=== PATIENT | female | born 1970 | race Caucasian/White ===

== ENCOUNTER 2018-05-14 01:45 | Emergency (ER) | payer OTHER, SELFPAY ==
[2018-05-14] VITALS (7 sets, daily range): BP systolic 109–141; BP diastolic 58–94; PULSE 83–102; RESP 17–24; TEMP 37.1–39.5; O2SAT 94–97
--- NOTE | 2018-05-14 02:01 | EKG12_ITS ---
Test Reason : COMPLAINT Blood Pressure : / mmHG Vent. Rate : 088 BPM Atrial Rate : 088 BPM P-R Int : 136 ms QRS Dur : 092 ms QT Int : 388 ms P-R-T Axes : 077 069 076 degrees QTc Int : 469 ms Normal sinus rhythm Normal ECG Confirmed by NICOLE MARTINEZ, ROSA ([id number]), assistant production editor MANUEL GUILLEN ([id number] on 05/16/2018 1:44:27 PM Referred By: ROMIE Confirmed By:ROSA RIVERA MD
[2018-05-14 02:04] LABS: Mucous, Urine 0 SEEN /hpf (<or=2+)
[2018-05-14 02:06] LABS: Color, Urine Yellow (Yellow); Glucose, Dipstick Normal (Normal); Ketone-Dipstick Negative (Negative); Leukocyte Esterase-Dipstick 500 /ul (Negative); Nitrite-Dipstick Positive (Negative); Occult Blood-Urine 250 /ul (Negative); Protein-Dipstick 30 mg/dl (Negative); Urine Bilirubin Dipstick Negative (Negative); Urine Clarity Cloudy (Clear); Urine Urobilinogen Normal (Normal)
--- NOTE | 2018-05-14 02:08 | ED.VISSUMM ---
- ER Visit Summary Date of Service: 05/14/18 Chief Complaint: Fever with urinary urgency and frequency and back pain History of Present Illness: The patient is a 47 F past medical history of kidney stones and asthma. Prior appendectomy and tubal ligation. Patient states several days of urinary urgency and frequency. Beginning on Monday. Monday morning started having a fever as high as 103. Nausea without vomiting. No diarrhea. No cough or chest pain or shortness of breath. States this does not feel like 1 of her prior kidney stones. Physical Examination: Middle-aged female. Temperature 103.1. She looks like she feels ill. She does not specifically look septic or toxic. She is mildly dehydrated. HEENT exam dry mucous membranes. Neck nontender no lymphadenopathy. No meningismus. Lungs clear to auscultation bilaterally. Heart tachycardic rate about 100 105. No murmur. Abdomen soft and nontender. Normal bowel sounds no peritoneal signs. Extremities moves all 4. Neurologically intact. Calves nontender without edema or cords. Skin no rashes. Back bilateral CVA tenderness. No ecchymosis or bruising. No redness or warmth. Neurologic exam normal. Awake alert. No focal motor deficits. Test Results: CBC shows a white count 8.5. Hemoglobin is 11 which is her baseline. Chemistries are unremarkable with a normal gap and creatinine. Liver enzymes normal. UA positive nitrates 25-50 white cells 10-25 red cells. 1+ bacteria. Consistent with UTI. Urine culture was sent. Lactate was normal at 0.9. EKG shows sinus rhythm rate 88 with no acute abnormality. Blood cultures were sent and are pending. Emergency Department Course and Treatment: Clinically patient has pyelonephritis. Will be hydrated with IV fluids. Afebrile be treated both oral Tylenol and IV Toradol. She will be started on Rocephin IV. Septic workup will be pursued including urinalysis, urine culture and blood cultures. Treatment Plan: Repeat exam at 04 50 8 AM patient is doing much better feels and looks better. She was given IV antibiotics here in the ER. She feels comfortable being discharged home. She and I discussed that she was diagnosed with pyelonephritis. She will be placed on Keflex 4 times a day for 10 days. Follow-up with her primary care physician. Return if worse. Plenty of fluids and rest. Work excuse for the next 2 days. Disposition: Discharge Impression: Acute fever Acute pyelonephritis Acute dehydration This note was generated with [employer] dictation software. It may contain incorrect words, spelling, and punctuation that were not noted in review of the chart prior to signing ED Disposition - Plan for ED Patient: Referrals: Cat Rouse MD [Primary Care Provider] -
[2018-05-14 02:11] LABS: Bacteria 1+ /hpf (None Seen); Red Blood Cells-Urine 10-25 SEEN /hpf (0-5); Squamous Epithelial Cells - UA 0-5 SEEN /hpf (5-10); White Blood Cells 25-50 SEEN /hpf (0-5)
[2018-05-14] MEDS: Acetaminophen 500 MG Tablet 1000 MG PO (02:12)
[2018-05-14] MEDS: Ondansetron 4 MG/2 ML Vial IV (02:13)
[2018-05-14] MEDS: Ketorolac 30 MG/ML Syringe IV (02:13)
[2018-05-14] MEDS: 0.9% Normal Saline 1,000 ML 999 ML IV ×2 (02:13→03:30)
[2018-05-14 02:19] LABS: Absolute Lymphocyte Count 1.31 X10^3/ul (0.83-4.51); Absolute Neutrophil Count 6.1 X10^3/uL (2.0-7.7); Basophil# 0.04 X10^3/uL; Basophil% 0.5 % (0-1); Eosinophil# 0.22 X10^3/uL; Eosinophils% 2.6 % (0-5); Hematocrit 35.7 % (37-47); Hemoglobin 11.7 g/dl (12.0-15.0); Lymphocyte # 1.31 X10^3/ul (4.0); Lymphocyte % 15.4 % (19-41); Mean Corp Hgb Conc 32.8 g/gl (32-36); Mean Corpuscular Hgb 29.5 pg (27.0-32.0); Mean Corpuscular Volume 89.9 fL (81-99); Mean Platelet Vol. 9.6 fl (6.2-12.0); Monocyte# 0.84 X10^3/uL; Monocyte% 9.9 % (0-10); Neutrophil # 6.05 X10^3/uL (2.7-7.7); Neutrophil % 71.4 % (47-70); Platelet Count 191 K/mm3 (150-450); RBC Distribution Width CV 13.8 % (11.6-14.6); RBC Distribution Width SD 45.5 fl (35.1-43.9); Red Blood Count 3.97 M/mm3 (4.2-5.4); White Blood Count 8.5 K/mm3 (4.4-11.0)
[2018-05-14 02:20] LABS: POSITIVE COUNT NO; POSITIVE DIFFERENTIAL NO; POSITIVE MORPHOLOGY NO
[2018-05-14 02:35] LABS: ALB/GLOB Ratio 0.9 RATIO (0.9-2.4); AST(SGOT) 15 U/L (15-37); Alanine Aminotransfer ALT/SGPT 14 U/L (13-56); Albumin, Serum 3.5 g/dL (3.2-5.0); Alkaline Phosphatase 99 U/L (45-117); Anion Gap 7 (5-15); BUN 13 mg/dL (7-18); BUN/Creat Ratio 17.4 RATIO (10-20); Calcium,Total 8.3 mg/dL (8.5-10.1); Chloride 110 mmol/L (98-107); Creatinine, Serum 0.75 mg/dL (0.55-1.02); EST Glomerular Filtration Rate 88 mL/min (>60); Est Glom Filt Rate - Afr Amer 106 mL/min (>60); Estimated Creatinine Clearance 84.14 ml/min; Globulin 3.8 g/dL (2.2-4.2); Glucose 148 mg/dL (74-106); Potassium 3.7 mmol/L (3.5-5.1); Protein, Total 7.3 g/dL (6.4-8.2); Sodium Level 139 mmol/L (136-145)
[2018-05-14 02:37] LABS: Lactic Acid 0.9 mmol/L (0.4-2.0)
[2018-05-14] MEDS: Ceftriaxone 1 GM/50 ML BAG IV (02:53)
--- NOTE | 2018-05-14 05:03 | ED.DEP ---
ED Disposition - Plan for ED Patient: Disposition: Home or Assisted Living Instructions: ED Kidney Infec Female Prescriptions: Cephalexin [Keflex] 500 mg PO Q6 #40 cap Referrals: Cat Rouse MD [Primary Care Provider] - 1 Week Additional Instructions: Plenty of fluids and rest. Alternate Tylenol and Motrin for the fever. He was diagnosed with a urinary tract infection that is up into your kidneys called pyelonephritis. You will be placed on the antibiotic Keflex 1 pill 4 times a day for 10 days. This should cover most urinary tract infections. Urine cultures were sent and pending if they come back and are a different bacteria than we are treating we will let you know. Follow-up with your primary care physician or return if worse.
[2018-05-14] MEDS: Ondansetron ODT 4 MG Tablet PO (05:21)
== END 2018-05-14 05:21 | disposition home or self-care (01) ==
PROVIDERS: Emergency Provider Emergency Medicine; Family Provider Internal Medicine; PCP Internal Medicine
DX: N10 Acute pyelonephritis (principal); E86.0 Dehydration; R50.9 Fever, unspecified; R00.0 Tachycardia, unspecified; J45.909 Unspecified asthma, uncomplicated; Z72.0 Tobacco use; Z79.899 Other long term (current) drug therapy; Z87.442 Personal history of urinary calculi
CPT/HCPCS: 80053; 81001; 83605; 85025; 87040; 87086; 87088; 87186; 93005; 96365; 96375; 99285; J7030; A4216; J2405

== ENCOUNTER 2020-06-11 12:20 | Emergency (ER) | payer MEDICAID, SELFPAY ==
[2020-06-11 12:21] VITALS: BP 149/92; PULSE 96; RESP 17; TEMP 35.8; O2SAT 95; BMI 20.8
[2020-06-11 12:24] VITALS: BP 149/92; PULSE 96; RESP 17; TEMP 35.8; O2SAT 95
--- NOTE | 2020-06-11 12:45 | RAD_ITS ---
STUDY: X-RAY CHEST REASON FOR EXAM: Female, 49 years old. Cough TECHNIQUE: Single AP portable view of the chest. COMPARISON: Comparison is made with prior study 01/22/2017. FINDINGS: EKG electrodes are seen. Hyperinflation. Stable blunting of the left costophrenic angle. No acute amount is seen. Normal size heart. Normal mediastinum and gisella. Normal visualized pulmonary arteries. Normal visualized aortic arch and descending thoracic aorta. Normal visualized thoracic spine. Normal visualized ribs, clavicles, and shoulders. There is no demonstrated abnormality of the visualized soft tissue structures of the upper abdomen. RAD/Chest 1 View (Portable) IMPRESSION: Hyperinflation. Stable examination. Electronically Signed: Leland Woodall MD at 13:28 EST , Service support ,
[2020-06-11 13:05] LABS: Absolute Lymphocyte Count 1.28 X10^3/uL (0.83-4.51); Absolute Neutrophil Count 11.9 X10^3/uL (2.0-7.7); Basophil# 0.09 X10^3/uL; Basophil% 0.6 % (0-1); Eosinophil# 0.06 X10^3/uL; Eosinophils% 0.4 % (0-5); Hemoglobin 11.4 g/dL (12.0-15.0); Lymphocyte # 1.28 X10^3/ul (4.0); Lymphocyte % 8.9 % (19-41); Mean Corp Hgb Conc 33.5 g/dL (32-36); Mean Corpuscular Volume 89.5 fL (81-99); Mean Platelet Vol. 9.9 fl (6.2-12.0); Monocyte# 1.03 X10^3/uL; Monocyte% 7.2 % (0-10); NRBC Flagged by Analyzer 0 % (0-5); Neutrophil # 11.88 X10^3/uL (2.7-7.7); Neutrophil % 82.5 % (47-70); Platelet Count 185 K/mm3 (150-450); RBC Distribution Width CV 12.9 % (11.6-14.6); RBC Distribution Width SD 42.4 fl (35.1-43.9); White Blood Count 14.4 K/mm3 (4.4-11.0)
[2020-06-11 13:21] LABS: AST(SGOT) 12 U/L (15-37); Alanine Aminotransfer ALT/SGPT 12 U/L (13-56); Albumin, Serum 3.5 g/dL (3.2-5.0); Alkaline Phosphatase 113 U/L (45-117); Anion Gap 6 (5-15); BUN 20 mg/dL (7-18); BUN/Creat Ratio 15.4 RATIO (10-20); Calcium,Total 8.7 mg/dL (8.5-10.1); Chloride 109 mmol/L (98-107); EST Glomerular Filtration Rate 46 mL/min (>60); Est Glom Filt Rate - Afr Amer 56 mL/min (>60); Estimated Creatinine Clearance 49.37 ml/min; Globulin 3.4 g/dL (2.2-4.2); Glucose 155 mg/dL (74-106); Potassium 3.5 mmol/L (3.5-5.1); Protein, Total 6.9 g/dL (6.4-8.2); Sodium Level 138 mmol/L (136-145)
[2020-06-11 13:25] LABS: Lactic Acid 0.8 mmol/L (0.4-1.9)
--- NOTE | 2020-06-11 13:28 | ED.VISSUMM ---
- ER Visit Summary Date of Service: 06/11/20 Chief Complaint: Fever, myalgias History of Present Illness: The patient is a 49 F who presents with fever and myalgias that began today when she woke up. Patient states she feels achy all over. Patient states it has been constant throughout the day. Patient states she took Tylenol prior to arrival which helped somewhat. Patient also admits to some low back pain. Patient also admits to a headache. Patient states her temperature at home was 102.6. Patient admits to a sore throat. Patient denies any chest pain. Patient denies any shortness of breath or cough. Patient denies any nausea, vomiting, or diarrhea. Physical Examination: Vital signs are stable. Patient is afebrile. Patient is in no acute distress. Oral mucosa is pink and moist. Neck is supple. Trachea is midline. There is no JVD noted. Heart was regular rate and rhythm. Lungs are clear and equal bilaterally. Abdomen is soft. Bowel sounds are normal. There is no tenderness. There is no rebound or guarding noted. Skin is warm dry. Cranial nerves II through XII are intact. There are no focal motor or sensory deficits noted. Extremities are intact. There is no calf tenderness or edema. Test Results: CBC shows a mild leukocytosis of 14.4. Hemoglobin was 11.4 and hematocrit was 34.0. Comprehensive metabolic profile was obtained. There is a mild elevation of her creatinine at 1.30. COVID-19 rapid antigen was obtained and was negative. Lactate was normal. Urinalysis showed leukocyte esterase of 500 and occult blood of 250. There were 25-50 white blood cells and 25-50 red blood cells. Urine culture was sent. Portable 1 view chest x-ray was obtained. On my interpretation, lung painter are clear. There is normal cardiac silhouette. Bony thorax is normal. There is no acute process noted. Radiologist also interpreted the x-ray and agrees. Emergency Department Course and Treatment: Patient was given IV fluids here. Patient was given a dose of IV Rocephin. Patient was given a prescription for Keflex. Patient was instructed to drink plenty of fluids. Patient was instructed to take Tylenol or ibuprofen as needed for any aches or fevers. Patient was instructed to follow-up with her primary care physician in 5 to 7 days. Patient understood and was agreeable with the plan. All questions were answered. Disposition: Discharge home Impression: 1. Urinary tract infection 2. Dehydration This note was generated with [employer] dictation software. It may contain incorrect words, spelling, and punctuation that were not noted in review of the chart prior to signing ED Disposition - Plan for ED Patient: Disposition: Home or Assisted Living Diagnosis: Urinary tract infection, Dehydration Instructions: ED Bladder Infection, Female (Adult) Prescriptions: Cephalexin [Keflex] 500 mg PO Q6 #12 cap Transmission Status: Pending to [facility]30 Referrals: Cat Rouse MD [Primary Care Provider] - 3-5 Days
[2020-06-11 14:12] VITALS: BP 133/82; PULSE 80; RESP 13; TEMP 36.9; O2SAT 97
[2020-06-11] MEDS: 0.9% Normal Saline 1,000 ML 999 ML IV ×2 (14:25→15:26)
[2020-06-11 14:30] LABS: Mucous, Urine 0 SEEN /hpf (<or=2+)
[2020-06-11 14:36] LABS: Color, Urine Yellow (Yellow); Glucose, Dipstick Normal (Normal); Ketone-Dipstick Negative (Negative); Leukocyte Esterase-Dipstick 500 /ul (Negative); Nitrite-Dipstick Negative (Negative); Occult Blood-Urine 250 /ul (Negative); Protein-Dipstick 30 mg/dl (Negative); Specific Gravity, Urine 1.015 (1.002-1.030); Urine Bilirubin Dipstick Negative (Negative); Urine Clarity Sl. Cloudy (Clear); Urine Urobilinogen Normal (Normal)
[2020-06-11 14:44] LABS: Bacteria 1+ /hpf (None Seen); Red Blood Cells-Urine 25-50 SEEN /hpf (0-5); Squamous Epithelial Cells - UA 0-5 SEEN /hpf (5-10); White Blood Cells 25-50 SEEN /hpf (0-5)
[2020-06-11 15:00] VITALS: BP 148/84; PULSE 80; RESP 17; TEMP 36.9; O2SAT 99
[2020-06-11] MEDS: Acetaminophen 500 MG Tablet 1000 MG PO (15:26)
[2020-06-11] MEDS: Ceftriaxone 1 GM/50 ML BAG IV (15:26)
[2020-06-11 16:37] VITALS: BP 142/85; PULSE 76; RESP 20; TEMP 36.9; O2SAT 98
== END 2020-06-11 16:54 | disposition home or self-care (01) ==
PROVIDERS: Emergency Provider Emergency Medicine; PCP Internal Medicine
DX: N39.0 Urinary tract infection, site not specified (principal); E86.0 Dehydration; Z20.822 Contact with and (suspected) exposure to COVID-19; J45.909 Unspecified asthma, uncomplicated; Z72.0 Tobacco use; Z79.899 Other long term (current) drug therapy
CPT/HCPCS: 71045; 80053; 81001; 83605; 85025; 87086; 87088; 87426; 96361; 96365; 99285; J7030; J7050

== ENCOUNTER 2020-06-23 01:52 | Emergency (ER) | payer MEDICAID, SELFPAY ==
[2020-06-23 01:53] VITALS: BP 150/86; PULSE 71; RESP 16; TEMP 36; O2SAT 98; BMI 21.5
--- NOTE | 2020-06-23 02:30 | ED.VIS.GEN ---
History of Present Illness Chief Complaint: Edema Informant: Patient Narrative: 49-year-old female took a lisinopril/HCTZ pill earlier this evening. This is a new prescription for hypertension that was prescribed by her PCP. She states that she woke with the left side of her tongue swelling. She denies any dyspnea or difficulty swallowing. She has never had anything like this before. Past Medical History - Allergies and Home Meds Allergies/Adverse Reactions: Allergies aluminum hydroxide [From Maalox Advanced] Adverse Reaction (Verified 06/23/20 01:55) Hives calcium carbonate [From Maalox Advanced] Adverse Reaction (Verified 06/23/20 01:55) Hives erythromycin base Adverse Reaction (Verified 06/23/20 01:55) Diarrhea magnesium hydroxide [From Maalox Advanced] Adverse Reaction (Verified 06/23/20 01:55) Hives simethicone [From Maalox Advanced] Adverse Reaction (Verified 06/23/20 01:55) Hives Primary Care Physician: Cat Rouse MD [Primary Care Provider] - Past Medical History: - - Hypertension Surgical History: noncontributory Smoking Status: Current every day smoker Drugs: None Review of Systems General: Denies: Chills, Fever, Sweats Eyes: Denies: Visual changes - bilaterally, Diplopia ENT: Reports: - - Tongue swelling. Denies: Rhinorrhea, Sore throat Cardiovascular: Denies: Chest pain, Palpitations Respiratory: Denies: Dyspnea, Cough, Dyspnea on exertion Gastrointestinal: Denies: Abdominal pain, Nausea, Vomiting, Diarrhea, Melena, Hematochezia Genitourinary: Denies: Dysuria, Hematuria, Frequency Musculoskeletal: Denies: Back pain, Extremity Pain Skin: Denies: Rash, Wounds Neurological: Denies: Headache, Weakness, Numbness Physical Exam Vital Signs/Narrative: Vital Signs Temp Pulse Resp BP Pulse Ox 06/23/20 01:53 96.8 F L 71 16 150/86 H 98 Inital Vital Signs reviewed: Yes General: Well nourished, Well developed, No Acute Distress Head: Normocephalic, Atraumatic Eyes: Perrl, EOMI ENT: Moist mucous membranes, No rhinorrhea, - - The left side of the tongue is swollen. The floor the mouth is not. There is no lip swelling. She is handling her secretions normally. No muffled voice. Neck: Supple, Nontender Cardiovascular: Regular rate, Regular rhythm, No murmurs Respiratory: No distress, CTA bilaterally, Chest nontender Abdomen: Soft, Nontender, Nondistended, Normal bowel sounds Back: Nontender, Normal Inspection Extremities: Nontender, No edema Skin: Normal color, No rash Neurological: Alert, Oriented x3, Cranial nerves II-XII grossly intact, Normal Strength, Normal Sensation Psychological: Normal affect, Normal Mood Diagnostic/Tx/Re-eval - Medical Decision Making Patient received Benadryl Pepcid and Solu-Medrol IV. She was allowed to rest. I checked on her multiple times and the patient is improving. After about 3 hours her tongue was minimally swollen only on the left side. Its normal grooves were now visible. At this point I believe it is reasonable to let her go home. Should she have any recurrence of her symptoms she needs to return. Prednisone Benadryl Pepcid at home as well. Discontinue of her lisinopril HCTZ medication. ED Disposition - Plan for ED Patient: Disposition: Home or Assisted Living Diagnosis: Angioedema Instructions: ED Angioedema Prescriptions: predniSONE tablet 60 mg PO DAILY #12 tab Prescription Printed Referrals: Cat Rouse MD [Primary Care Provider] - Additional Instructions: Please discontinue your lisinopril/HCTZ medication. Please take Benadryl every 8 hours for the next 3 days Pepcid 20 mg twice daily for 3 days Prednisone prescription.
[2020-06-23] MEDS: MethylPREDNISolone 125 MG/2 ML Vial IV (02:33)
[2020-06-23] MEDS: DiphenhydrAMINE 50 MG/ML Syringe 25 MG IV (02:33)
[2020-06-23] MEDS: Famotidine 200 MG/20 ML MDV 20 MG in 0.9% Normal Saline (Pres. free 8 ML 300 MG IV (02:33)
[2020-06-23 03:23] VITALS: BP 92/73; PULSE 61; RESP 14; O2SAT 98
[2020-06-23 04:37] VITALS: BP 116/66; PULSE 63; RESP 15; O2SAT 97
[2020-06-23 05:06] VITALS: BP 132/75; PULSE 60; RESP 16; O2SAT 97
== END 2020-06-23 05:06 | disposition home or self-care (01) ==
PROVIDERS: Emergency Provider Emergency Medicine; PCP Internal Medicine
DX: T78.3XXA Angioneurotic edema, initial encounter (principal); I10 Essential (primary) hypertension; F17.200 Nicotine dependence, unspecified, uncomplicated; Z79.52 Long term (current) use of systemic steroids; Z79.899 Other long term (current) drug therapy
CPT/HCPCS: 96374; 96375; 99284; J7030; A4216; J3490

== ENCOUNTER 2020-07-23 11:19 | Outpatient (RCR) | payer MEDICAID, SELFPAY | END 2020-09-15 23:59 | LOC: IMMUN 11:19 | PROVIDERS: PCP Internal Medicine; Referring Provider Family Medicine; Visit Provider Family Medicine | DX: Z23 Encounter for immunization (principal) | CPT/HCPCS: 0001A; 0002A; 91300 ==

== ENCOUNTER 2021-02-16 13:54 | Emergency (ER) | payer MEDICAID, SELFPAY ==
[2021-02-16 13:55] VITALS: BP 112/68; PULSE 63; RESP 16; TEMP 37.4; O2SAT 99; BMI 22.1
[2021-02-16 15:02] LABS: Mucous, Urine 0 SEEN /hpf (<or=2+); Squamous Epithelial Cells - UA 0 SEEN /hpf (5-10)
[2021-02-16 15:03] LABS: Color, Urine Yellow (Yellow); Glucose, Dipstick Normal (Normal); Ketone-Dipstick Negative (Negative); Leukocyte Esterase-Dipstick 500 /ul (Negative); Nitrite-Dipstick Positive (Negative); Occult Blood-Urine 250 /ul (Negative); Protein-Dipstick 30 mg/dl (Negative); Specific Gravity, Urine 1.015 (1.002-1.030); Urine Bilirubin Dipstick Negative (Negative); Urine Clarity Cloudy (Clear); Urine Urobilinogen Normal (Normal); Urine pH 6.5 (5.0 - 8.0)
[2021-02-16 15:09] LABS: Bacteria 1+ /hpf (None Seen); Red Blood Cells-Urine > 100 SEEN /hpf (0-5); White Blood Cells >100 SEEN /hpf (0-5)
--- NOTE | 2021-02-16 16:41 | CT_ITS ---
STUDY: CT ABDOMEN AND PELVIS WITHOUT CONTRAST REASON FOR EXAM: Female, 50 years old. Flank pain RADIATION DOSAGE (If Supplied By Facility): CTDIvol = ( 6.19 ) mGy, DLP = ( 292.05 ) mGycm TECHNIQUE: Transaxial images were obtained from the dome of the diaphragm to the symphysis pubis without oral contrast, and without intravenous contrast. Sagittal and coronal images were reconstructed. Individualized dose optimization techniques were used for this CT. COMPARISON: 2016 FINDINGS: The visualized lung bases are unremarkable. The visualized portions of the heart are within normal limits. Normal liver. Normal gallbladder and extrahepatic biliary system. Normal spleen. Normal pancreas. Normal bilateral adrenal glands. Left kidney is free of obstructive uropathy. There are stable hyperdense cysts and stable nonobstructing stones, largest in the lower pole measures 7.4 mm. The right kidney shows hydronephrosis and hydroureter with perinephric and periureteral inflammatory stranding. Findings are due to a 5 mm stone in the proximal right ureter seen on axial image 67. The ureter distal to this stone is of normal caliber. There are nonobstructing stones noted within the right kidney along with a stable fat-containing angiomyolipoma. Normal visualized stomach. Nondistended fluid-filled small bowel loops are noted consistent with ileus. Normal colon. There is non-visualization of the appendix. There is diffuse atherosclerotic calcification of the abdominal aorta, without a demonstrated aneurysm. Normal inferior vena cava. Normal retroperitoneum. Normal urinary bladder. Uterus is present, the endometrium cannot be accurately evaluated with CT. Normal abdominal wall. There are diffuse degenerative changes of the visualized lumbar spine, and pelvis. CT/Abdomen/Pelvis without Cont IMPRESSION: There is a 5 mm stone in the proximal right ureter causing right-sided hydronephrosis and hydroureter with perinephric and periureteral inflammatory stranding. Bilateral nonobstructing nephrolithiasis Stable hyperdense cysts in the left kidney, no specific follow-up needed. 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
[2021-02-16] MEDS: Ondansetron 4 MG/2 ML Vial IV (16:45)
[2021-02-16] MEDS: Morphine 4 MG/ML Syringe IV ×2 (16:45→18:15)
[2021-02-16 17:29] LABS: Absolute Lymphocyte Count 1.64 X10^3/uL (0.83-4.51); Absolute Neutrophil Count 13.4 X10^3/uL (2.0-7.7); Basophil# 0.07 X10^3/uL; Basophil% 0.4 % (0-1); Eosinophils% 2.9 % (0-5); Hemoglobin 12.1 g/dL (12.0-15.0); Lymphocyte # 1.64 X10^3/ul (0.83-4.51); Lymphocyte % 9.5 % (19-41); Mean Corp Hgb Conc 32.7 g/dL (32-36); Mean Corpuscular Hgb 29.3 pg (27.0-32.0); Mean Corpuscular Volume 89.6 fL (81-99); Mean Platelet Vol. 9.7 fl (6.2-12.0); Monocyte# 1.49 X10^3/uL; Monocyte% 8.7 % (0-10); NRBC Flagged by Analyzer 0 % (0-5); Neutrophil # 13.37 X10^3/uL (2.7-7.7); Neutrophil % 77.9 % (47-70); Platelet Count 248 K/mm3 (150-450); RBC Distribution Width CV 13.7 % (11.6-14.6); RBC Distribution Width SD 45.5 fl (35.1-43.9); Red Blood Count 4.13 M/mm3 (4.2-5.4); White Blood Count 17.2 K/mm3 (4.4-11.0)
[2021-02-16 17:38] LABS: Anion Gap 3 (5-15); BUN 21 mg/dL (7-18); BUN/Creat Ratio 19.8 RATIO (10-20); Calcium,Total 9.1 mg/dL (8.5-10.1); Chloride 106 mmol/L (98-107); Creatinine, Serum 1.06 mg/dL (0.55-1.02); EST Glomerular Filtration Rate 58 mL/min (>60); Est Glom Filt Rate - Afr Amer 70 mL/min (>60); Estimated Creatinine Clearance 61.06 ml/min; Glucose 134 mg/dL (74-106); Potassium 4.4 mmol/L (3.5-5.1); Sodium Level 136 mmol/L (136-145)
[2021-02-16] MEDS: Ceftriaxone 1 GM/50 ML BAG IV (17:41)
[2021-02-16] MEDS: oxyCODONE 5 MG Tablet PO (18:16)
[2021-02-16 18:32] VITALS: BP 129/71; PULSE 72; RESP 16; O2SAT 97
--- NOTE | 2021-02-16 20:40 | ED.VIS.FEGU ---
HPI HPI - Female History of Present Illness Chief Complaint: Flank Pain Narrative Narrative: 50-year-old female presenting with right flank pain. She said it started earlier today. Patient has history of kidney stones and does see Dr. Douglas as her urologist. Patient states he has had to have stents put in for her kidney stones. She states her typically rather large. Patient has not had any fever or chills. She admits to dysuria and urinary frequency. Patient does also have associated nausea and vomiting. PFSH PFSH Home Medications amitriptyline 3 tab PO QHS 01/12/17 [History Last Taken Unknown] citalopram 1 tab PO DAILY 01/12/17 [History Last Taken Unknown] meloxicam 1 tab PO DAILY 01/12/17 [History Last Taken Unknown] albuterol sulfate [Proair Hfa] 2 puff INHALATION Q4H PRN PRN 05/14/18 [History Last Taken Unknown] hydroxyzine HCl 1 tab PO Q6H PRN PRN 05/14/18 [History Last Taken Unknown] lisinopril-hydrochlorothiazide 1 ea PO DAILY 06/23/20 [History Last Taken Unknown] prednisone 60 mg PO DAILY #12 tab 06/23/20 [Rx Last Taken Unknown] ondansetron HCl [Zofran] 4 mg PO Q8H #20 tab 02/16/21 [Rx Last Taken Unknown] oxycodone-acetaminophen [Percocet] 1 tab PO Q6H PRN 3 Days #12 tab 02/16/21 [Rx Last Taken Unknown] sulfamethoxazole-trimethoprim [Bactrim DS] 1 tab PO BID #28 tab 02/16/21 [Rx Last Taken Unknown] Allergy/AdvReac Type Severity Reaction Status Date / Time lisinopril Allergy Angioedema Verified 02/16/21 13:57 aluminum hydroxide AdvReac Hives Verified 02/16/21 13:56 [From Maalox Advanced] calcium carbonate AdvReac Hives Verified 02/16/21 13:56 [From Maalox Advanced] erythromycin base AdvReac Diarrhea Verified 02/16/21 13:56 magnesium hydroxide AdvReac Hives Verified 02/16/21 13:56 [From Maalox Advanced] simethicone AdvReac Hives Verified 02/16/21 13:56 [From Maalox Advanced] Social History Smoking Status: Current every day smoker tobacco type: cigarettes ROS ROS ED Constitutional Constitutional ED: Denies chills or fever(s) Eyes Eyes: Denies blurry vision or change in vision ENT ENT ED: Denies rhinorrhea or sore throat Cardiovascular Cardiovascular: Denies chest pain or palpitations Respiratory/Chest Respiratory/Chest: Denies cough, dyspnea or stridor Gastrointestinal Gastrointestinal: Reports abdominal pain, nausea and vomiting Musculoskeletal Musculoskeletal: Reports other Details: Right flank pain Integumentary Denies Abrasions or rash Neurologic Neurologic: Denies headache(s) or paresthesias EXAM Physical Exam Const Vital Signs: 02/16/21 13:55 02/16/21 18:32 Temperature 99.3 F H Temperature Source Temporal Pulse Rate 63 72 Respiratory Rate 16 16 Blood Pressure 112/68 129/71 H Blood Pressure Mean 82 Pulse Ox 99 97 Oxygen Delivery Method Room Air Positive well nourished General Appearance ED: NAD; Negative for pallor HEENT Reports moist mucous membranes Negative for trauma Eyes PERRL and EOMs intact bilaterally Resp normal respiratory effort and clear to auscultation bilaterally Cardio regular rate and regular rhythm GI GI Narrative: Mild tenderness to palpation right lower quadrant. Narrative: Right-sided CVA tenderness. Back/Spine General Back: CVA tenderness right Neuro oriented x3 Sensorium / Orientation: alert Psych mental status grossly normal Skin General Skin Exam: Negative for jaundice or pallor MDM MDM MDM Narrative Medical decision making narrative: Patient presenting with right flank pain and history of kidney stones. Her urinalysis was positive for infection with positive nitrites as well as white blood cells count WBCs greater than 100. Leukocyte esterase is 500. Patient given a dose of Rocephin. I did obtain blood work and her renal function and electrolytes are normal. Her CBC shows a leukocytosis of 17.2. Otherwise her vital signs are all completely normal and she is not tachycardic, tachypneic, hypotensive, febrile. CT of the abdomen pelvis without contrast shows a 5 mm proximal ureteral stone consistent with the patient's pain pattern. Patient was given 2 doses of morphine in the ED and she feels improved. I did discuss possibility of admission given her UTI and kidney stone however she felt more comfortable following up with her outpatient urologist Dr. Douglas. She will be started on Bactrim, oxycodone, Zofran for home. She is given return precautions. Impression: 1. 5 mm right ureteral stone 2. Pyelonephritis Lab Data Attestation: I reviewed the patient's lab results. Labs: Laboratory Results - last 24 hr 02/16/21 02/16/21 02/16/21 14:56 16:25 16:25 WBC 17.2 H RBC 4.13 L Hgb 12.1 Hct 37.0 MCV 89.6 MCH 29.3 MCHC 32.7 RDW Std Deviation 45.5 H RDW Coeff of Atiya 13.7 Plt Count 248 MPV 9.7 Immature Gran % (Auto) 0.600 Neut % (Auto) 77.9 H Lymph % (Auto) 9.5 L [place] % (Auto) 8.7 Eos % (Auto) 2.9 Baso % (Auto) 0.4 Absolute Neuts (auto) 13.4 H Absolute Lymphs (auto) 1.64 Nucleated RBC % 0 Sodium 136 Potassium 4.4 Chloride 106 Carbon Dioxide 27.0 Anion Gap 3 L BUN 21 H Creatinine 1.06 H Estim Creat Clear Calc 61.06 Est GFR (MDRD) Af Amer 70 Est GFR (MDRD) Non-Af 58 L BUN/Creatinine Ratio 19.8 Glucose 134 H Calcium 9.1 Urine Color Yellow Urine Clarity Cloudy Urine pH 6.5 Ur Specific [place] 1.015 Urine Protein 30 H Urine Glucose (UA) Normal Urine Ketones Negative Urine Occult Blood 250 H Urine Nitrite Positive H Urine Bilirubin Negative Urine Urobilinogen Normal Ur Leukocyte Esterase 500 H Urine RBC > 100 SEEN Urine WBC >100 SEEN Ur Squamous Epith Cells 0 SEEN Urine Bacteria 1+ Urine Mucus 0 SEEN Radiography Diagnostic Testing: Clinical Impression(s) from Imaging Studies Abdomen/Pelvis CT 02/16/21 16:41 IMPRESSION: There is a 5 mm stone in the proximal right ureter causing right-sided hydronephrosis and hydroureter with perinephric and periureteral inflammatory stranding. Bilateral nonobstructing nephrolithiasis Stable hyperdense cysts in the left kidney, no specific follow-up needed. 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, no specific follow-up needed Small bowel ileus No free intraperitoneal fluid, air, or suspicious adenopathy Electronically Signed: Mike Pressley MD at 17:22 EST , Service support , Discharge Plan Triage Chief Complaint: Flank Pain ED Provider: Jorge Min Dx/Rx/DC Orders Instructions: ED Pyelonephritis, Female (Adult), ED Kidney Stone w/ Colic Prescriptions: New sulfamethoxazole-trimethoprim [Bactrim DS] 800-160 mg tablet 1 tab PO BID Qty: 28 RF: 0 oxycodone-acetaminophen [Percocet] 5-325 mg tablet 1 tab PO Q6H PRN (Reason: pain) 3 Days Qty: 12 RF: 0 ondansetron HCl [Zofran] 4 mg tablet 4 mg PO Q8H Qty: 20 RF: 0 No Action citalopram 40 MG tablet 1 tab PO DAILY RF: 0 meloxicam 15 MG tablet 1 tab PO DAILY RF: 0 amitriptyline 10 MG tablet 3 tab PO QHS RF: 0 hydroxyzine HCl 25 MG tablet 1 tab PO Q6H PRN PRN (Reason: Sleep) RF: 0 albuterol sulfate [ProAir HFA] 1 PUFF inhaler 2 puff inhalation Q4H PRN PRN (Reason: Wheezing) RF: 0 lisinopril-hydrochlorothiazide 1 EACH tablet 1 ea PO DAILY RF: 0 prednisone 20 MG tablet 60 mg PO DAILY Qty: 12 RF: 0 Primary Care Provider: Cat Rouse Referrals: Cat Rouse MD [Primary Care Provider] - Disposition Disposition: Home, Self Care Discharge Date/Time: 02/16/21 18:39
== END 2021-02-16 18:39 | disposition home or self-care (01) ==
PROVIDERS: Emergency Provider Student in an Organized Health Care Education/Training Program; PCP Internal Medicine
DX: N13.6 Pyonephrosis (principal); F17.210 Nicotine dependence, cigarettes, uncomplicated; Z79.1 Long term (current) use of non-steroidal anti-inflammatories (NSAID); Z79.52 Long term (current) use of systemic steroids; Z79.899 Other long term (current) drug therapy; Z87.442 Personal history of urinary calculi
CPT/HCPCS: 74176; 80048; 81001; 85025; 87077; 87086; 87088; 87186; 96365; 99285; J7050; A4216; J2405

== ENCOUNTER 2022-01-09 12:52 | Emergency (ER) | payer OTHER, MEDICAID, SELFPAY ==
[2022-01-09 12:54] VITALS: BP 130/78; PULSE 65; RESP 18; TEMP 36.2; O2SAT 99; BMI 22.4
--- NOTE | 2022-01-09 13:04 | RAD_ITS ---
STUDY: X-RAY - UNILATERAL RIBS ( LEFT ) WITH CHEST REASON FOR EXAM: Female, 51 years old. Shortness of breathCOUGHING WITH LEFT RIB PAIN X 3 WEEKS TECHNIQUE - RIBS: 4 view(s) of the ribs. TECHNIQUE - CHEST: Single PA view of the chest. COMPARISON: AUGUST 11, 2020 FINDINGS - RIBS: Normal visualized ribs without a demonstrated fracture. FINDINGS - CHEST: The lungs are clear. No visualized consolidation or pneumothorax. There is hyperinflation of the lungs consistent with chronic obstructive lung disease (COPD). There is no demonstrated pleural abnormality. Normal size heart. Normal mediastinum and gisella. Normal visualized pulmonary arteries. Normal visualized aortic arch and descending thoracic aorta. Normal visualized thoracic spine. Normal visualized ribs, clavicles, and shoulders. There is no demonstrated abnormality of the visualized soft tissue structures of the upper abdomen. RAD/Ribs Uni Min 3V w/PA Chest IMPRESSION: RIBS: Normal x-ray examination of the ribs. CHEST: No acute process. COPD Electronically Signed: Bhupendra Ferro MD at 14:09 EDT ,
--- NOTE | 2022-01-09 13:06 | EX.ED.DYSGE1 ---
HPI <MONIQUE Forrest - Last Filed: 01/09/22 14:12> History of Present Illness Chief Complaint: Other, Pain/Inj Narrative Narrative: 51-year-old female with history of asthma who still smokes 1/2 pack/day, anxiety, depression, hypertension presents to the [facility] with 2 weeks of generalized left rib pain. Patient has had a viral illness that she has been suffering from for the last 3 weeks, patient states she is coughing uncontrollably and has worsening pain to her left lateral ribs. Patient states that she still has a cough and the rib pain is getting worse and she is here for evaluation. She denies any recent trips, she denies any history of PE, DVT, no recent surgeries. Patient denies any fevers or chills. Patient has had pneumothorax in the past and she is concerned PFS <MONIQUE Forrest - Last Filed: 01/09/22 14:12> [facility] Home Medications amitriptyline 10 mg tablet 3 tab PO QHS 01/12/17 [History Last Taken Unknown] citalopram 40 mg tablet 1 tab PO DAILY 01/12/17 [History Last Taken Unknown] meloxicam 15 mg tablet 1 tab PO DAILY 01/12/17 [History Last Taken Unknown] albuterol sulfate 90 mcg/actuation aerosol inhaler (ProAir HFA) 2 puff inhalation Q4H PRN PRN Wheezing 05/14/18 [History Last Taken Unknown] hydroxyzine HCl 25 mg tablet 1 tab PO Q6H PRN PRN Sleep 05/14/18 [History Last Taken Unknown] lisinopril 20 mg-hydrochlorothiazide 12.5 mg tablet 1 ea PO DAILY 06/23/20 [History Last Taken Unknown] prednisone 20 mg tablet 60 mg PO DAILY #12 tabs 06/23/20 [Rx Last Taken Unknown] ondansetron HCl 4 mg tablet (Zofran) 4 mg PO Q8H #20 tabs 02/16/21 [Rx Last Taken Unknown] oxycodone-acetaminophen 5 mg-325 mg tablet (Percocet) 1 tab PO Q6H PRN pain 3 days #12 tabs 02/16/21 [Rx Last Taken Unknown] sulfamethoxazole 800 mg-trimethoprim 160 mg tablet (Bactrim DS) 1 tab PO BID #28 tabs 02/16/21 [Rx Last Taken Unknown] albuterol sulfate 90 mcg/actuation aerosol inhaler (Ventolin HFA) 1 - 2 puff inhalation Q4H PRN Wheezing #8.5 grams 01/09/22 [Rx Last Taken Unknown] prednisone 10 mg tablet See Taper PO DAILY #30 tabs 01/09/22 [Rx Last Taken Unknown] tramadol 50 mg tablet 50 mg PO Q8H PRN pain #10 tabs 01/09/22 [Rx Last Taken Unknown] Allergy/AdvReac Type Severity Reaction Status Date / Time lisinopril Allergy Angioedema Verified 01/09/22 12:54 aluminum hydroxide AdvReac Hives Verified 01/09/22 12:54 [From Maalox Advanced] calcium carbonate AdvReac Hives Verified 01/09/22 12:54 [From Maalox Advanced] erythromycin base AdvReac Diarrhea Verified 01/09/22 12:54 magnesium hydroxide AdvReac Hives Verified 01/09/22 12:54 [From Maalox Advanced] simethicone AdvReac Hives Verified 01/09/22 12:54 [From Maalox Advanced] Social History Smoking Status: Current every day smoker tobacco type: cigarettes ROS <Luis Lilly NP-C - Last Filed: 01/09/22 14:12> [facility] ED ROS Narrative Constitutional: Negative for fever, chills, weight loss, weakness Eyes: Negative for vision loss, vision change, double vision ENT: Negative for any sore throat, ear pain, congestion Cardiovascular: Negative for any chest pain, tightness, palpitations. Positive for left rib pain Respiratory: Negative for any , sputum production, hemoptysis, dyspnea on exertion, orthopnea. Positive for cough, positive for intermittent dyspnea Gastrointestinal: Negative for any abdominal pain, nausea, vomiting, diarrhea, constipation, blood in stool, blood in vomit : Negative for any urinary frequency, dysuria, retention, blood in urine Muscle skeletal: Negative for any muscle joint pain, stiffness, myalgias, arthralgias, neck pain, back pain Neurological: Negative for any headache, syncope, numbness or tingling, dizziness Skin: Negative for any rashes, lumps, itching, abrasions, lacerations Psychiatric: Negative for any depression, anxiety, stress, suicidal ideation, homicidal ideation Hematologic: Negative for any easy bruising, excessive bruising, easy bleeding Allergies: Negative for any eczema, hives, rash EXAM <MONIQUE Forrest - Last Filed: 01/09/22 14:12> Physical Exam Narrative Exam Narrative: Vital signs reviewed. HEET: Head normocephalic atraumatic, TMs clear bilaterally. Posterior pharynx is clear, moist mucous membranes. Nares clear bilaterally. Neck: Supple with no lymphadenopathy or tenderness. No signs of meningismus, negative jolt sign. Cardiac: Regular rate and rhythm no murmurs gallops or rubs, equal peripheral pulses bilaterally. Respiratory: Lung sounds heard bilaterally however patient does have expiratory wheeze bilaterally to lower lung field. Positive left-sided chest tenderness, negative for any ecchymosis, negative for any edema, negative for any crepitus noted Abdomen: Soft, nontender, nondistended. No abdominal bruit or pulsatile masses. No hepatosplenomegaly Extremities: No peripheral edema, no signs of gross trauma or deformity. Active full range of motion of all extremities. Neuro: Cranial nerves II through XII intact, no focal neurological deficits. Skin: Clean dry and intact with no rash, purpura, petechiae, vesicles or pustules. Backs/flank: No CVA tenderness, no midline spinal tenderness, no deformity. Psych: Normal mood and affect. No SI, HI or acute psychosis. Const Vital Signs: 01/09/22 12:54 01/09/22 13:05 01/09/22 13:15 Temperature 97.1 F L Temperature Source Temporal Pulse Rate 65 64 Respiratory Rate 18 20 H Respiratory Effort Respiratory Pattern Normal Blood Pressure 130/78 H Blood Pressure Mean 95 Pulse Ox 99 Oxygen Delivery Method Room Air 01/09/22 13:15 01/09/22 13:16 Temperature Temperature Source Pulse Rate Respiratory Rate 20 H Respiratory Effort Short of Breath Respiratory Pattern Blood Pressure Blood Pressure Mean Pulse Ox 100 100 Oxygen Delivery Method Room Air Room Air Positive well nourished and well developed General Appearance ED: well developed <Dr. Hussein Carey MD - Last Filed: 01/09/22 13:53> Physical Exam Const Vital Signs: 01/09/22 12:54 01/09/22 13:05 01/09/22 13:15 Temperature 97.1 F L Temperature Source Temporal Pulse Rate 65 64 Respiratory Rate 18 20 H Respiratory Effort Respiratory Pattern Normal Blood Pressure 130/78 H Blood Pressure Mean 95 Pulse Ox 99 Oxygen Delivery Method Room Air 01/09/22 13:15 01/09/22 13:16 Temperature Temperature Source Pulse Rate Respiratory Rate 20 H Respiratory Effort Short of Breath Respiratory Pattern Blood Pressure Blood Pressure Mean Pulse Ox 100 100 Oxygen Delivery Method Room Air Room Air [facility] <MONIQUE Forrest - Last Filed: 01/09/22 14:12> [facility] Radiography Diagnostic Testing: Clinical Impression(s) from Imaging Studies Ribs w/Chest X-Ray 01/09/22 13:04 IMPRESSION: RIBS: Normal x-ray examination of the ribs. CHEST: No acute process. COPD Electronically Signed: Bhupendra Ferro MD at 14:09 EDT , Treatment and Re-Evaluation Narrative: Patient appears well, patient appears nontoxic, vital signs are stable. Patient presents to the emergency department with 2 weeks of left-sided chest pain secondary to coughing, 3 weeks of generalized viral-like illness. Patient does not appear toxic. Patient's vital signs are stable, she is not hypoxic. Patient's physical examination is consistent with an asthma exacerbation. She did receive x-rays inserted by ER physician these were unremarkable for any pneumothorax, infiltrate. Patient did receive breathing treatments, this did greatly improve her respiratory status. Patient will be discharged with a steroid taper, albuterol inhaler, as well as a few days of tramadol for her left rib pain. At this time, I do not believe that antibiotics are indicated. Patient is instructed to return for any worsening symptoms. Patient stable for discharge. <Dr. Hussein Carey MD - Last Filed: 01/09/22 13:53> [facility] Narrative Medical decision making narrative: Seen and evaluated independently and in conjunction with FIELD OPERATOR. Agree with notes above unless documented otherwise. Patient has been having increased asthma symptoms as well as a URI for the past 3 weeks. She states she was having fevers early on in the course of the illness but not since. MDI has been helping a little, but now her wheezing and dyspnea has been out of control to the point where the MDI is not helping very much. She does have expiratory wheezes on exam, and pain with tenderness at 1 particular point in her left chest wall/rib cage in the anterior axillary line, approximately rib #9 or 8. There is no crepitus or subcutaneous emphysema. I believe this is probably an intercostal strain due to all the coughing which significantly makes the pain worse. We obtained a two-view chest x-ray which on my interpretation is negative for any pneumonia or fracture or pneumothorax. I do not think she needs further work-up, she was given aerosols that helped a lot, we will place her on steroids I do not think she needs antibiotics and she already has a rescue inhaler, she is comfortable with that plan. Radiography Diagnostic Testing: Clinical Impression(s) from Imaging Studies Ribs w/Chest X-Ray 01/09/22 13:04 IMPRESSION: RIBS: Normal x-ray examination of the ribs. CHEST: No acute process. COPD Electronically Signed: Bhupendra Ferro MD at 14:09 EDT Reading Location ID and State: [address] [place] [address] , Service support , Discharge Plan Triage Chief Complaint: Other, Pain/Inj ED Midlevel Provider: Luis Lilly ED Provider: Hussein Carey Dx/Rx/DC Orders Clinical Impression: Asthma exacerbation, Bronchitis, Acute bronchospasm, Chest wall muscle strain Instructions: ED Bronchospasm (Adult), ED Chest Wall Strain, Asthma Prescriptions: New albuterol sulfate [Ventolin HFA] 90 mcg/actuation HFA aerosol inhaler 1 - 2 puff inhalation Q4H PRN Qty: 8.5 1RF prednisone 10 mg tablet See Taper PO DAILY Qty: 30 0RF Taper: Prednisone Taper 40 mg DAILY@0800 for 3 Days and 0 Hour 30 mg DAILY@0800 for 3 Days and 0 Hour 20 mg DAILY@0800 for 3 Days and 0 Hour 10 mg DAILY@0800 for 3 Days and 0 Hour tramadol 50 mg tablet 50 mg PO Q8H PRN (Reason: pain) Qty: 10 0RF No Action citalopram 40 MG tablet 1 tab PO DAILY Label Comments: TAKE 1 TABLET BY MOUTH DAILY meloxicam 15 MG tablet 1 tab PO DAILY Label Comments: Take 1 tablet by mouth once daily. amitriptyline 10 MG tablet 3 tab PO QHS Label Comments: Take 3 tablets by mouth daily at bedtime. hydroxyzine HCl 25 MG tablet 1 tab PO Q6H PRN PRN (Reason: Sleep) Label Comments: TAKE 1 TABLET BY MOUTH EVERY 6 HOURS NEEDED albuterol sulfate [ProAir HFA] 1 PUFF inhaler 2 puff inhalation Q4H PRN PRN (Reason: Wheezing) Label Comments: INHALE 2 PUFFS INTO THE LUNGS EVERY 4 HOURS NEEDED lisinopril-hydrochlorothiazide 1 EACH tablet 1 ea PO DAILY prednisone 20 MG tablet 60 mg PO DAILY Qty: 12 0RF sulfamethoxazole-trimethoprim [Bactrim DS] 800-160 mg tablet 1 tab PO BID Qty: 28 0RF oxycodone-acetaminophen [Percocet] 5-325 mg tablet 1 tab PO Q6H PRN (Reason: pain) 3 Days Qty: 12 0RF ondansetron HCl [Zofran] 4 mg tablet 4 mg PO Q8H Qty: 20 0RF Primary Care Provider: Cat Rouse Referrals: Cat Rouse MD [Primary Care Provider] - Activity Restrictions/Additional Instructions: Take medications as prescribed Disposition Disposition: Home, Self Care
[2022-01-09] MEDS: predniSONE 20 MG Tablet 60 MG PO (13:08)
[2022-01-09] MEDS: Albuterol 2.5 MG/3 ML VIAL.NEB. INHALATION (13:13)
[2022-01-09] MEDS: Ipratropium/Albuterol Sulfate 3 ML AMPUL.NEB INHALATION (13:13)
[2022-01-09 13:15] VITALS: PULSE 64; RESP 20; O2SAT 100
[2022-01-09 13:16] VITALS: RESP 20; O2SAT 100
== END 2022-01-09 14:24 | disposition home or self-care (01) ==
PROVIDERS: Emergency Provider Emergency Medicine; PCP Internal Medicine; Visit Provider Emergency Medicine
DX: J45.901 Unspecified asthma with (acute) exacerbation (principal); F17.210 Nicotine dependence, cigarettes, uncomplicated; S29.011A Strain of muscle and tendon of front wall of thorax, initial encounter; X58.XXXA Exposure to other specified factors, initial encounter
CPT/HCPCS: 71101; 94640; 99251; 99283; G0463

== ENCOUNTER 2022-11-03 14:36 | Emergency (ER) | payer OTHER, MEDICAID, SELFPAY ==
[2022-11-03 14:37] VITALS: BP 154/95; PULSE 96; RESP 18; TEMP 36.6; O2SAT 99
[2022-11-03 17:41] LABS: Mucous, Urine 0 SEEN /hpf (<or=2+); Squamous Epithelial Cells - UA 0 SEEN /hpf (5-10)
[2022-11-03 17:48] LABS: Internal QC Validated? YES +Cl - CLEAR BKGD; Pregnancy, Serum, hCG Quali. NEGATIVE Negative
[2022-11-03 17:51] LABS: Color, Urine Yellow (Yellow); Glucose, Dipstick Normal (Normal); Ketone-Dipstick Negative (Negative); Leukocyte Esterase-Dipstick 500 /ul (Negative); Nitrite-Dipstick Positive (Negative); Occult Blood-Urine 250 /ul (Negative); Protein-Dipstick 100 mg/dl (Negative); Urine Bilirubin Dipstick Negative (Negative); Urine Clarity Sl. Cloudy (Clear); Urine Urobilinogen Normal (Normal)
--- NOTE | 2022-11-03 17:51 | CT_ITS ---
STUDY: CT ABDOMEN AND PELVIS WITHOUT CONTRAST REASON FOR EXAM: Female, 52 years old. Right flank pain RADIATION DOSAGE (If Supplied By Facility): CTDIvol = ( 6.05 ) mGy, DLP = ( 279.54 ) mGycm TECHNIQUE: Transaxial images were obtained from the dome of the diaphragm to the symphysis pubis without oral contrast, and without intravenous contrast. Sagittal and coronal images were reconstructed. Individualized dose optimization techniques were used for this CT. COMPARISON: February 16, 2021 FINDINGS: The visualized lung bases are unremarkable. The visualized portions of the heart are within normal limits. Normal liver. Normal gallbladder and extrahepatic biliary system. Normal spleen. Normal pancreas. Normal bilateral adrenal glands. Multiple tiny nonobstructing calculi in the left kidney. There is a small cyst as well as 2 small hemorrhagic cyst. . There are tiny nonobstructing stones in the right kidney as well as a lipomatous density possibly representing angiomyolipoma Normal visualized stomach. Normal small intestine. Diffuse fecal retention noted within the colon. No evidence for acute appendicitis Minor atherosclerotic changes of the aorta without evidence for aneurysm. Normal inferior vena cava. Normal retroperitoneum. Incompletely distended mildly thick walled bladder likely of no significance. Small right ovarian cyst measuring approximately 2.05 x 1.75 cm Normal abdominal wall. Normal osseous structures. CT/Abdomen/Pelvis without Cont IMPRESSION: Bilateral nephrolithiasis without evidence for hydronephrosis or ureteral calculus Small simple and hemorrhagic cysts in left kidney. 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 Incidental finding of small right ovarian cyst. Electronically Signed: Marvin Fox MD at 19:00 EDT ,
[2022-11-03 17:58] LABS: Bacteria 1+ /hpf (None Seen); Calcium Oxalate Crystals Ur RARE /hpf (<or=2+); Red Blood Cells-Urine 5-10 SEEN /hpf (0-5); White Blood Cells 50-100 SEEN /hpf (0-5)
[2022-11-03] MEDS: 0.9% Normal Saline 1,000 ML 1000 ML IV (18:06)
[2022-11-03] MEDS: Morphine 4 MG/ML Syringe IV (18:06)
[2022-11-03] MEDS: Ondansetron 4 MG/2 ML Vial IV (18:06)
[2022-11-03 18:14] LABS: Absolute Lymphocyte Count 2.46 X10^3/uL (0.83-4.51); Absolute Neutrophil Count 6.9 X10^3/uL (2.0-7.7); Basophil# 0.09 X10^3/uL; Basophil% 0.9 % (0-1); Eosinophil# 0.34 X10^3/uL; Eosinophils% 3.2 % (0-5); Hematocrit 41.6 % (37-47); Hemoglobin 13.3 g/dL (12.0-15.0); Lymphocyte # 2.46 X10^3/ul (0.83-4.51); Lymphocyte % 23.3 % (19-41); Mean Corpuscular Hgb 28.4 pg (27.0-32.0); Mean Corpuscular Volume 88.9 fL (81-99); Monocyte# 0.75 X10^3/uL; Monocyte% 7.1 % (0-10); NRBC Flagged by Analyzer 0 % (0-5); Neutrophil # 6.91 X10^3/uL (2.7-7.7); Neutrophil % 65.3 % (47-70); Platelet Count 270 K/mm3 (150-450); RBC Distribution Width CV 13.4 % (11.6-14.6); RBC Distribution Width SD 43.7 fl (35.1-43.9); Red Blood Count 4.68 M/mm3 (4.2-5.4); White Blood Count 10.6 K/mm3 (4.4-11.0)
[2022-11-03 18:33] LABS: Anion Gap 8 (5-15); BUN 20 mg/dL (7-18); BUN/Creat Ratio 20.8 RATIO (10-20); Calcium,Total 9.6 mg/dL (8.5-10.1); Chloride 106 mmol/L (98-107); Creatinine, Serum 0.96 mg/dL (0.55-1.02); EST Glomerular Filtration Rate 64 mL/min (>60); Est Glom Filt Rate - Afr Amer 78 mL/min (>60); Estimated Creatinine Clearance 62.12 ml/min; Glucose 105 mg/dL (74-106); Potassium 3.6 mmol/L (3.5-5.1); Sodium Level 140 mmol/L (136-145)
--- NOTE | 2022-11-03 19:43 | EDS_ITS ---
HPI History of Present Illness Chief Complaint: Flank Pain Informant: patient Onset/Context/Timing Onset: Days Context: Gradual Onset Timing: Continuous Quality: Pressure Location: Back Worsened by: Nothing Relieved by: Sleep Narrative Narrative: Patient presents with right flank pain and generalized fatigue that has been getting worse over the past few days. Patient states it is gradually getting worse. Patient states she feels pressure in her back. Patient admits to some urinary frequency but denies any dysuria or hematuria. Patient states she has a history of kidney stones. Patient states this feels somewhat similar to kidney stone pain that she has had in the past. Patient admits to nausea but denies any vomiting. Patient admits to some subjective chills but denies any fevers. Patient states her pain gets better when she is able to sleep. Patient also admits to headache and some dizziness. [facility] Medical History (Updated 11/03/22 @ 19:[address] Pavan Petty, DO) Asthma Kidney stones Home Medications amitriptyline 10 mg tablet 3 tab PO QHS 01/12/17 [History Last Taken Unknown] citalopram 40 mg tablet 1 tab PO DAILY 01/12/17 [History Last Taken Unknown] meloxicam 15 mg tablet 1 tab PO DAILY 01/12/17 [History Last Taken Unknown] albuterol sulfate 90 mcg/actuation aerosol inhaler (ProAir HFA) 2 puff inhala tion Q4H PRN PRN Wheezing 05/14/18 [History Last Taken Unknown] hydroxyzine HCl 25 mg tablet 1 tab PO Q6H PRN PRN Sleep 05/14/18 [History Last Taken Unknown] lisinopril 20 mg-hydrochlorothiazide 12.5 mg tablet 1 ea PO DAILY 06/23/20 [History Last Taken Unknown] prednisone 20 mg tablet 60 mg (3 x 20 mg) PO DAILY #12 tabs 06/23/20 [Rx Last Taken Unknown] ondansetron HCl 4 mg tablet (Zofran) 4 mg PO Q8H #20 tabs 02/16/21 [Rx Last Taken Unknown] oxycodone-acetaminophen 5 mg-325 mg tablet (Percocet) 1 tab PO Q6H PRN pain 3 days #12 tabs 02/16/21 [Rx Last Taken Unknown] sulfamethoxazole 800 mg-trimethoprim 160 mg tablet (Bactrim DS) 1 tab PO BID #28 tabs 02/16/21 [Rx Last Taken Unknown] albuterol sulfate 90 mcg/actuation aerosol inhaler (Ventolin HFA) 1 - 2 puff inhalation Q4H PRN Wheezing #8.5 grams 01/09/22 [Rx Last Taken Unknown] prednisone 10 mg tablet See Taper PO DAILY #30 tabs 01/09/22 [Rx Last Taken Unknown] tramadol 50 mg tablet 50 mg PO Q8H PRN pain #10 tabs 01/09/22 [Rx Last Taken Unknown] nitrofurantoin monohydrate/macrocrystals 100 mg capsule 100 mg PO Q12 #14 CAPSULES 11/03/22 [Rx Last Taken Unknown] Allergy/AdvReac Type Severity Reaction Status Date / Time hydrochlorothiazide Allergy Angioedema Verified 11/03/22 14:39 [From Zestoretic] lisinopril Allergy Angioedema Verified 11/03/22 14:39 aluminum hydroxide AdvReac Hives Verified 11/03/22 14:39 [From Maalox Advanced] calcium carbonate AdvReac Hives Verified 11/03/22 14:39 [From Maalox Advanced] erythromycin base AdvReac Diarrhea Verified 11/03/22 14:39 magnesium hydroxide AdvReac Hives Verified 11/03/22 14:39 [From Maalox Advanced] simethicone AdvReac Hives Verified 11/03/22 14:39 [From Maalox Advanced] Surgical History (Updated 11/03/22 @ 19:[address] Pavan Petty, ) Hx of tonsillectomy Hx of tubal ligation S/P ureteral stent placement Social History Smoking Status: Current every day smoker tobacco type: cigarettes ROS ROS ED Constitutional Constitutional ED: Reports chills and subjective; Denies fever(s) Eyes Eyes: Denies blurry vision or change in vision ENT ENT ED: Denies rhinorrhea or sore throat Cardiovascular Cardiovascular: Denies chest pain or palpitations Respiratory/Chest Respiratory/Chest: Denies cough or dyspnea Gastrointestinal Gastrointestinal: Reports nausea; Denies vomiting Genitourinary Genitourinary ED: Reports urinary frequency; Denies dysuria or hematuria Musculoskeletal Musculoskeletal: Reports back pain; Denies neck pain Integumentary Denies abscess or rash Neurologic Neurologic: Reports headache(s) and weakness Allergic/Immunologic Allergic/Immunologic ED: Denies mouth swelling or urticaria EXAM Physical Exam Const Vital Signs: 11/03/22 14:37 11/03/22 21:24 Temperature 97.8 F Temperature Source Temporal Pulse Rate 96 62 Respiratory Rate 18 14 Blood Pressure 154/95 H 155/71 H Blood Pressure Mean 114 Pulse Ox 99 98 Oxygen Delivery Method Room Air Positive well nourished and well developed General Appearance ED: well developed HEENT Reports moist mucous membranes Neck supple and no JVD Resp normal respiratory effort and clear to auscultation bilaterally Cardio regular rate, regular rhythm and no murmurs GI normal to inspection, nondistended, normoactive bowel sounds and non-tender Palpation: soft Back/Spine no CVA tenderness Back/Spine Narrative: There is some mild tenderness over the right lower lumbar paraspinal muscles. There is no midline tenderness. There is no CVA tenderness. There is no bony crepitance or step-off. Range of motion was slightly limited in all motion secondary to pain. Extremity normal to inspection General Extremety ED: Negative for edema or tenderness General Extremity: Negative for edema Neuro oriented x3, CN's II-XII intact bilaterally and no sensory deficits noted Sensorium / Orientation: alert Motor Exam: strength 5/5 throughout Psych mental status grossly normal Skin no rashes or lesions noted MDM MDM MDM Narrative Medical decision making narrative: Differential diagnosis includes ureteral calculus, pyelonephritis, sepsis, viral illness, and ectopic . CBC will be obtained to assess for leukocytosis and anemia. Basic metabolic profile will be obtained to assess for electrolyte abnormality and renal function. Serum hCG will be obtained to assess for pr egnancy. Urinalysis will be obtained to assess for urinary tract infection and pyelonephritis. Urine culture will be obtained to assess for urinary tract infection. CT scan of the abdomen pelvis will be obtained to assess for pyelonephritis and ureteral calculus. Lab Data Attestation: I reviewed the patient's lab results. Lab results narrative: CBC was reviewed and was within normal limits. Basic metabolic profile was reviewed and was within normal limits. Serum hCG was reviewed and was negative. Urinalysis was reviewed. Leukocyte esterase was 500 with 50-100 white blood cells and positive nitrites. Occult blood was 250 with 5-10 red blood cells. There was 1+ bacteria. Labs: Laboratory Results - last 24 hr 11/03/22 11/03/22 11/03/22 16:44 16:46 17:26 WBC 10.6 RBC 4.68 Hgb 13.3 Hct 41.6 MCV 88.9 MCH 28.4 MCHC 32.0 RDW Std Deviation 43.7 RDW Coeff of Atiya 13.4 Plt Count 270 MPV 11.0 Immature Gran % (Auto) 0.200 Neut % (Auto) 65.3 Lymph % (Auto) 23.3 [place] % (Auto) 7.1 Eos % (Auto) 3.2 Baso % (Auto) 0.9 Absolute Neuts (auto) 6.9 Absolute Lymphs (auto) 2.46 Nucleated RBC % 0 Sodium 140 Potassium 3.6 Chloride 106 Carbon Dioxide 26.0 Anion Gap 8 BUN 20 H Creatinine 0.96 Estim Creat Clear Calc 62.12 Est GFR (MDRD) Af Amer 78 Est GFR (MDRD) Non-Af 64 BUN/Creatinine Ratio 20.8 H Glucose 105 Calcium 9.6 Serum , Qual NEGATIVE Urine Color Yellow Urine Clarity Sl. Cloudy Urine pH 6.0 Ur Specific [place] 1.020 Urine Protein 100 H Urine Glucose (UA) Normal Urine Ketones Negative Urine Occult Blood 250 H Urine Nitrite Positive H Urine Bilirubin Negative Urine Urobilinogen Normal Ur Leukocyte Esterase 500 H Urine RBC 5-10 SEEN Urine WBC 50-100 SEEN Ur Squamous Epith Cells 0 SEEN Calcium Oxalate Crystal RARE Urine Bacteria 1+ Urine Mucus 0 SEEN Radiography Diagnostic Testing: Clinical Impression(s) from Imaging Studies Abdomen/Pelvis CT 11/03/22 17:51 IMPRESSION: Bilateral nephrolithiasis without evidence for hydronephrosis or ureteral calculus Small simple and hemorrhagic cysts in left kidney. 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 Incidental finding of small right ovarian cyst. Electronically Signed: Marvin Fox MD at 19:00 EDT , CT scan of the abdomen and pelvis was obtained. There are bilateral renal calculi but there is no ureteral calculus or obstruction. There are small hemorrhagic cysts in the left kidney. There is no other acute abnormality noted. This was interpreted by the radiologist and was also independently reviewed by myself. Treatment and Re-Evaluation :: Patient was given IV fluids. Patient was given morphine. Urine culture was ordered. Patient was given a dose of Rocephin here. Patient was advised of her findings. Patient was instructed to drink plenty of fluids. Patient was given a prescription for Macrobid. Patient was instructed to follow-up with her primary care physician in 5 to 7 days. Patient understood and was agreeable with the plan. All questions were answered. Discharge Plan Triage Chief Complaint: Flank Pain ED Provider: Pavan Petty Dx/Rx/DC Orders Clinical Impression: Urinary tract infection Instructions: ED Cystitis Female Adult Prescriptions: New nitrofurantoin monohyd/m-cryst [nitrofurantoin monohyd/m-cryst] 100 mg capsule 100 mg PO Q12 Qty: 14 0RF No Action citalopram 40 MG tablet 1 tab PO DAILY Patient Comments: TAKE 1 TABLET BY MOUTH DAILY meloxicam 15 MG tablet 1 tab PO DAILY Patient Comments: Take 1 tablet by mouth once daily. amitriptyline 10 MG tablet 3 tab PO QHS Patient Comments: Take 3 tablets by mouth daily at bedtime. hydroxyzine HCl 25 MG tablet 1 tab PO Q6H PRN PRN (Reason: Sleep) Patient Comments: TAKE 1 TABLET BY MOUTH EVERY 6 HOURS NEEDED albuterol sulfate [ProAir HFA] 1 PUFF inhaler 2 puff inhalation Q4H PRN PRN (Reason: Wheezing) Patient Comments: INHALE 2 PUFFS INTO THE LUNGS EVERY 4 HOURS NEEDED lisinopril-hydrochlorothiazide 1 EACH tablet 1 ea PO DAILY prednisone 20 MG tablet 60 mg PO DAILY Qty: 12 0RF sulfamethoxazole-trimethoprim [Bactrim DS] 800-160 mg tablet 1 tab PO BID Qty: 28 0RF oxycodone-acetaminophen [Percocet] 5-325 mg tablet 1 tab PO Q6H PRN (Reason: pain) 3 Days Qty: 12 0RF ondansetron HCl [Zofran] 4 mg tablet 4 mg PO Q8H Qty: 20 0RF albuterol sulfate [Ventolin HFA] 90 mcg/actuation HFA aerosol inhaler 1 - 2 puff inhalation Q4H PRN Qty: 8.5 1RF prednisone 10 mg tablet See Taper PO DAILY Qty: 30 0RF Taper: Prednisone Taper 40 mg DAILY@0800 for 3 Days and 0 Hour 30 mg DAILY@0800 for 3 Days and 0 Hour 20 mg DAILY@0800 for 3 Days and 0 Hour 10 mg DAILY@0800 for 3 Days and 0 Hour tramadol 50 mg tablet 50 mg PO Q8H PRN (Reason: pain) Qty: 10 0RF Primary Care Provider: Cat Rouse Referrals: Cat Rouse MD [Primary Care Provider] - 5-7 Days Disposition Disposition: Home, Self Care Discharge Date/Time: 11/03/22 21:24
[2022-11-03] MEDS: Ceftriaxone 1 GM/50 ML BAG IV (19:52)
[2022-11-03 21:24] VITALS: BP 155/71; PULSE 62; RESP 14; O2SAT 98
== END 2022-11-03 21:24 | disposition home or self-care (01) ==
PROVIDERS: Emergency Provider Emergency Medicine; PCP Internal Medicine; Visit Provider Emergency Medicine
DX: N39.0 Urinary tract infection, site not specified (principal); R42 Dizziness and giddiness; R51.9 Headache, unspecified; R11.0 Nausea; J45.909 Unspecified asthma, uncomplicated; F17.210 Nicotine dependence, cigarettes, uncomplicated; Z79.899 Other long term (current) drug therapy; Z87.442 Personal history of urinary calculi
CPT/HCPCS: 74176; 80048; 81001; 84703; 85025; 87077; 87086; 87088; 87186; 96361; 96365; 96375; 99283; J7030; A4216; J2405

== ENCOUNTER 2023-12-11 12:13 | Emergency (ER) | payer OTHER, SELFPAY ==
[2023-12-11 12:13] VITALS: BP 106/73; PULSE 87; RESP 14; TEMP 37.3; O2SAT 99; BMI 20.6
--- NOTE | 2023-12-11 12:53 | EKG12_ITS ---
Test Reason : SOB Blood Pressure : / mmHG Vent. Rate : 070 BPM Atrial Rate : 070 BPM P-R Int : 142 ms QRS Dur : 086 ms QT Int : 424 ms P-R-T Axes : 074 054 069 degrees QTc Int : 457 ms Normal sinus rhythm Normal ECG Confirmed by NICOLE MARTINEZ, ROSA ([id number]), industrial editor TEAGAN VITALE ([id number]) on 12/12/2023 1:14:22 PM Referred By: Confirmed By:ROSA RIVERA MD
[2023-12-11] MEDS: Ondansetron 4 MG/2 ML Vial IV (13:02)
[2023-12-11] MEDS: 0.9% Normal Saline (1000mL) 1,000 ML 999 ML IV (13:02)
[2023-12-11] MEDS: Ipratropium/Albuterol Sulfate 3 ML AMPUL.NEB INHALATION (13:02)
[2023-12-11] MEDS: predniSONE 20 MG Tablet 60 MG PO (13:02)
[2023-12-11 13:11] VITALS: PULSE 70; RESP 16
[2023-12-11 13:21] LABS: Absolute Neutrophil Count 3.4 X10^3/uL (2.0-7.7); Basophil# 0.04 X10^3/uL; Basophil% 0.7 % (0-1); Eosinophil# 0.11 X10^3/uL; Eosinophils% 1.8 % (0-5); Hematocrit 36.3 % (37-47); Lymphocyte % 28.3 % (19-41); Mean Corp Hgb Conc 33.1 g/dL (32-36); Mean Corpuscular Hgb 28.7 pg (27.0-32.0); Mean Corpuscular Volume 86.8 fL (81-99); Mean Platelet Vol. 9.8 fl (6.2-12.0); Monocyte# 0.73 X10^3/uL; Monocyte% 12.1 % (0-10); NRBC Flagged by Analyzer 0 % (0-5); Neutrophil # 3.41 X10^3/uL (2.7-7.7); Neutrophil % 56.8 % (47-70); Platelet Count 191 K/mm3 (150-450); RBC Distribution Width CV 13.9 % (11.6-14.6); RBC Distribution Width SD 43.8 fl (35.1-43.9); Red Blood Count 4.18 M/mm3 (4.2-5.4)
[2023-12-11 13:33] LABS: ALB/GLOB Ratio 0.8 RATIO (0.9-2.4); AST(SGOT) 18 U/L (15-37); Alanine Aminotransfer ALT/SGPT 12 U/L (13-56); Albumin, Serum 3.2 g/dL (3.2-5.0); Alkaline Phosphatase 109 U/L (45-117); Anion Gap 10 (5-15); BUN 24 mg/dL (7-18); BUN/Creat Ratio 18.6 RATIO (10-20); Calcium,Total 8.7 mg/dL (8.5-10.1); Chloride 103 mmol/L (98-107); Creatinine, Serum 1.29 mg/dL (0.55-1.02); EST Glomerular Filtration Rate 46 mL/min (>60); Est Glom Filt Rate - Afr Amer 55 mL/min (>60); Estimated Creatinine Clearance 47.06 ml/min; Glucose 100 mg/dL (74-106); Lipase 51 U/L (13-75); Potassium 3.3 mmol/L (3.5-5.1); Protein, Total 7.2 g/dL (6.4-8.2); Sodium Level 136 mmol/L (136-145)
--- NOTE | 2023-12-11 13:36 | RAD_ITS ---
HISTORY: cough. TECHNIQUE: XR Chest 2 Views. COMPARISON: 01/09/2022. FINDINGS: CARDIOMEDIASTINAL BORDERS: Cardiac silhouette within normal limits in size. Mediastinal contour unremarkable. LUNGS: Mild linear bibasilar opacities. Chronic nodular biapical scarring. PLEURA: No pleural effusion or pneumothorax seen. OSSEOUS STRUCTURES: Unremarkable. RAD/Chest PA and Lateral IMPRESSION: Mild bilateral lower lobe atelectasis or inflammation. Electronically Signed: Sangita Walters MD at 14:18 EDT ,
[2023-12-11 14:00] VITALS: BP 118/67; PULSE 71; RESP 19; TEMP 37.3; O2SAT 98
[2023-12-11 14:04] LABS: Color, Urine Yellow (Yellow); Glucose, Dipstick Normal (Normal); Ketone-Dipstick Negative (Negative); Leukocyte Esterase-Dipstick 100 /ul (Negative); Nitrite-Dipstick Negative (Negative); Occult Blood-Urine 250 /ul (Negative); Protein-Dipstick 15 mg/dl (Negative); Urine Bilirubin Dipstick Negative (Negative); Urine Clarity Clear (Clear); Urine Urobilinogen Normal (Normal)
[2023-12-11 14:14] LABS: Amorphous Sediment 1+; Bacteria 1+ /hpf (None Seen); Mucous, Urine 1+ /hpf (<or=2+); Red Blood Cells-Urine 5-10 SEEN /hpf (0-5); Squamous Epithelial Cells - UA 0-5 SEEN /hpf (5-10); White Blood Cells >100 SEEN /hpf (0-5)
--- NOTE | 2023-12-11 15:48 | EDS_ITS ---
HPI History of Present Illness Chief Complaint: Weakness Narrative Narrative: Patient is a 53-year-old female past medical history of asthma who presented to the emergency department chief complaint of cough, congestion, nausea vomiting diarrhea and bodyaches for the past 4 days. Patient states that her son has been ill at home as well with similar symptoms. Patient states that she did use her inhaler today for her shortness of breath as she noted that she had some wheezing. Patient states that she has not been on any steroids recently. [facility] Medical History Kidney stones Asthma Home Medications ?Medication ?Instructions ?Recorded ?Last Taken ?Type amitriptyline 10 mg tablet 3 tab PO QHS 01/12/17 Unknown History citalopram 40 mg tablet 1 tab PO DAILY 01/12/17 Unknown History meloxicam 15 mg tablet 1 tab PO DAILY 01/12/17 Unknown History albuterol sulfate 90 mcg/actuation 2 puff inhalation Q4H PRN PRN 05/14/18 Unknown History aerosol inhaler (ProAir HFA) Wheezing hydroxyzine HCl 25 mg tablet 1 tab PO Q6H PRN PRN Sleep 05/14/18 Unknown History lisinopril 20 1 ea PO DAILY 06/23/20 Unknown History mg-hydrochlorothiazide 12.5 mg tablet prednisone 20 mg tablet 60 mg (3 x 20 mg) PO DAILY #12 tabs 06/23/20 Unknown Rx ondansetron HCl 4 mg tablet 4 mg PO Q8H #20 tabs 02/16/21 Unknown Rx (Zofran) oxycodone-acetaminophen 5 mg-325 1 tab PO Q6H PRN pain 3 days #12 02/16/21 Unknown Rx mg tablet (Percocet) tabs sulfamethoxazole 800 1 tab PO BID #28 tabs 02/16/21 Unknown Rx mg-trimethoprim 160 mg tablet (Bactrim DS) albuterol sulfate 90 mcg/actuation 1 - 2 puff inhalation Q4H PRN 01/09/22 Unknown Rx aerosol inhaler (Ventolin HFA) Wheezing #8.5 grams prednisone 10 mg tablet See Taper PO DAILY #30 tabs 01/09/22 Unknown Rx tramadol 50 mg tablet 50 mg PO Q8H PRN pain #10 tabs 01/09/22 Unknown Rx nitrofurantoin 100 mg PO Q12 #14 CAPSULES 11/03/22 Unknown Rx monohydrate/macrocrystals 100 mg capsule ondansetron 4 mg disintegrating 4 mg PO Q6H PRN nausea and 12/11/23 Unknown Rx tablet vomiting #20 tabs prednisone 50 mg tablet 50 mg PO DAILY 5 days #5 tabs 12/11/23 Unknown Rx Allergy/AdvReac Type Severity Reaction Status Date / Time hydrochlorothiazide (From Allergy Angioedema Verified 12/11/23 12:14 Zestoretic) lisinopril Allergy Angioedema Verified 12/11/23 12:14 aluminum hydroxide (From AdvReac Hives Verified 12/11/23 12:14 Maalox Advanced) calcium carbonate (From AdvReac Hives Verified 12/11/23 12:14 Maalox Advanced) erythromycin base AdvReac Diarrhea Verified 12/11/23 12:14 magnesium hydroxide (From AdvReac Hives Verified 12/11/23 12:14 Maalox Advanced) simethicone (From Maalox AdvReac Hives Verified 12/11/23 12:14 Advanced) Surgical History Hx of tubal ligation Hx of tonsillectomy S/P ureteral stent placement Social History Smoking Status: Current every day smoker tobacco type: cigarettes ROS ROS ED ROS Narrative Constitutional: Complains of fever and chills, denies headaches, lightheadedness, dizziness Eyes: Denies change in vision double vision blurry vision Cardiovascular: Denies chest pain or palpitations Respiratory: Complains of cough and wheezing as noted above states that she is not having any productive sputum Abdomen: Denies abdominal pain complains of nausea vomiting diarrhea as noted above : Denies any urinary symptoms Neurological: Denies numbness, knees, tingling Musculoskeletal: Denies back pain Skin: Denies rashes or lesions EXAM Physical Exam Narrative Exam Narrative: General: Patient was lying in bed rest comfortably did not appear to be in any acute distress Head: Atraumatic, normocephalic Eyes: PERRL bilaterally, EOMI bilateral, no conjunctival injection noted Neck: Soft, supple, trachea midline Cardiovascular: Regular rate and rhythm no murmurs gallops rubs noted Respiratory: Patient had mild end expiratory wheezing noted diffusely throughout her lungs Abdomen: Soft, nondistended, no tenderness palpation Extremities: +5/5 strength noted in the bilateral upper and lower extremities Neurological: Patient Jorge welsh knew that she was at [facility] year is 2023 Skin: Warm, dry, intact Const Vital Signs: 12/11/23 12:13 12/11/23 12:21 12/11/23 13:11 Temperature 99.2 F H Temperature Source Temporal Pulse Rate 87 70 Respiratory Rate 14 16 Respiratory Pattern Normal Blood Pressure 106/73 Blood Pressure Mean 84 Pulse Ox 99 Oxygen Delivery Method Room Air 12/11/23 14:00 Temperature 99.2 F H Temperature Source Temporal Pulse Rate 71 Respiratory Rate 19 H Respiratory Pattern Blood Pressure 118/67 Blood Pressure Mean 84 Pulse Ox 98 Oxygen Delivery Method Room Air MDM MDM MDM Narrative Medical decision making narrative: Patient is a 53-year-old female who presents to the emergency department with chief complaint of nausea, vomiting, diarrhea and diffuse bodyaches for the last 4 days. Patient will have a workup performed here on the differential diagnosis includes but not limited to viral gastroenteritis, upper respiratory affection secondary to viral etiology,, ACS asthma exacerbation. Once workup is obtained reviewed she will be reevaluated. Patient was given a DuoNeb and prednisone. Patient's CBC reviewed showed no evidence of leukocytosis white blood count normal at 6, hemoglobin was stable at 12, platelet count was noted to be normal at 191. Patient's sodium was noted 136, potassium was 3.3, creatinine was 1.29 she was encouraged to continue to orally hydrate this likely secondary to dehydration. Patient's AST and ALT were 18 and 12 respectively. Patient's urinalysis had 100 leukocyte esterase negative nitrates with greater than 100 white cells and 1+ bacteria she states that she does not have any urinary symptoms currently this will be sent for urine culture. Patient's chest x-ray was reviewed and showed mild bilateral lower lobe atelectasis or inflammation. Patient's tested positive for COVID-19 here in the emergency department. Patient's EKG reviewed showed normal sinus rhythm with a rate of 70 bpm. I did discuss these results with the patient and she states that she is feeling better when she first came in. Patient will be sent a prescription for prednisone for the next 5 days and was encouraged to orally hydrate and continue supportive care. She was encouraged to follow-up with her primary care physician in the outpatient setting as well as follow-up on urine culture with them. She is agreeable with this plan she would like to go home at this point time all question concerns answered she is discharged home in stable condition. Lab Data Labs: Laboratory Results - last 24 hr 12/11/23 12/11/23 13:10 13:56 WBC 6.0 RBC 4.18 L Hgb 12.0 Hct 36.3 L MCV 86.8 MCH 28.7 MCHC 33.1 RDW Std Deviation 43.8 RDW Coeff of Atiya 13.9 Plt Count 191 MPV 9.8 Immature Gran % (Auto) 0.300 Neut % (Auto) 56.8 Lymph % (Auto) 28.3 Piatt % (Auto) 12.1 H Eos % (Auto) 1.8 Baso % (Auto) 0.7 Absolute Neuts (auto) 3.4 Absolute Lymphs (auto) 1.70 Nucleated RBC % 0 Sodium 136 Potassium 3.3 L Chloride 103 Carbon Dioxide 23.0 Anion Gap 10 BUN 24 H Creatinine 1.29 H Estim Creat Clear Calc 47.06 Est GFR (MDRD) Af Amer 55 L Est GFR (MDRD) Non-Af 46 L BUN/Creatinine Ratio 18.6 Glucose 100 Calcium 8.7 Total Bilirubin 0.20 AST 18 ALT 12 L Alkaline Phosphatase 109 Total Protein 7.2 Albumin 3.2 Globulin 4.0 Albumin/Globulin Ratio 0.8 L Lipase 51 Urine Color Yellow Urine Clarity Clear Urine pH 6.0 Ur Specific Caroline 1.010 Urine Protein 15 H Urine Glucose (UA) Normal Urine Ketones Negative Urine Occult Blood 250 H Urine Nitrite Negative Urine Bilirubin Negative Urine Urobilinogen Normal Ur Leukocyte Esterase 100 H Urine RBC 5-10 SEEN Urine WBC >100 SEEN Ur Squamous Epith Cells 0-5 SEEN Amorphous Sediment 1+ Urine Bacteria 1+ Urine Mucus 1+ Radiography Diagnostic Testing: Clinical Impression(s) from Imaging Studies Chest X-Ray 12/11/23 13:36 IMPRESSION: Mild bilateral lower lobe atelectasis or inflammation. Electronically Signed: Sangita Walters MD at 14:18 EDT Reading Location ID and State: [facility] / [place] Tel , Service support , Discharge Plan Triage Chief Complaint: Weakness ED Provider: Mukul Aviles Dx/Rx/DC Orders Clinical Impression: COVID-19 Prescriptions: New prednisone 50 mg tablet 50 mg PO DAILY 5 Days Qty: 5 0RF ondansetron 4 mg tablet,disintegrating 4 mg PO Q6H PRN (Reason: nausea and vomiting) Qty: 20 0RF No Action citalopram 40 MG tablet 1 tab PO DAILY Patient Comments: TAKE 1 TABLET BY MOUTH DAILY meloxicam 15 MG tablet 1 tab PO DAILY Patient Comments: Take 1 tablet by mouth once daily. amitriptyline 10 MG tablet 3 tab PO QHS Patient Comments: Take 3 tablets by mouth daily at bedtime. hydroxyzine HCl 25 MG tablet 1 tab PO Q6H PRN PRN (Reason: Sleep) Patient Comments: TAKE 1 TABLET BY MOUTH EVERY 6 HOURS NEEDED albuterol sulfate [ProAir HFA] 1 PUFF inhaler 2 puff inhalation Q4H PRN PRN (Reason: Wheezing) Patient Comments: INHALE 2 PUFFS INTO THE LUNGS EVERY 4 HOURS NEEDED lisinopril-hydrochlorothiazide 1 EACH tablet 1 ea PO DAILY prednisone 20 MG tablet 60 mg PO DAILY Qty: 12 0RF sulfamethoxazole-trimethoprim [Bactrim DS] 800-160 mg tablet 1 tab PO BID Qty: 28 0RF oxycodone-acetaminophen [Percocet] 5-325 mg tablet 1 tab PO Q6H PRN (Reason: pain) 3 Days Qty: 12 0RF ondansetron HCl [Zofran] 4 mg tablet 4 mg PO Q8H Qty: 20 0RF albuterol sulfate [Ventolin HFA] 90 mcg/actuation HFA aerosol inhaler 1 - 2 puff inhalation Q4H PRN Qty: 8.5 1RF prednisone 10 mg tablet See Taper PO DAILY Qty: 30 0RF Taper: Prednisone Taper 40 mg DAILY@0800 for 3 Days and 0 Hour 30 mg DAILY@0800 for 3 Days and 0 Hour 20 mg DAILY@0800 for 3 Days and 0 Hour 10 mg DAILY@0800 for 3 Days and 0 Hour tramadol 50 mg tablet 50 mg PO Q8H PRN (Reason: pain) Qty: 10 0RF nitrofurantoin monohyd/m-cryst [nitrofurantoin monohyd/m-cryst] 100 mg capsule 100 mg PO Q12 Qty: 14 0RF Primary Care Provider: Cat Rouse Referrals: Cat Rouse MD [Primary Care Provider] - Activity Restrictions/Additional Instructions: Take steroids as prescribed. Follow-up on your urine culture with your primary care physician to see if you need antibiotics for a urinary tract infection. Use the Zofran as needed for nausea. Continue supportive care with ensuring adequate hydration and start with a bland diet and advance as tolerated. Print Language: Arabic Disposition Disposition: Home, Self Care
[2023-12-11 16:00] VITALS: BP 113/78; PULSE 77; RESP 18; TEMP 37.3; O2SAT 98
[2023-12-11 16:02] VITALS: BP 116/78; PULSE 77; RESP 18; TEMP 37.2; O2SAT 98
== END 2023-12-11 16:06 | disposition home or self-care (01) ==
PROVIDERS: Emergency Provider Emergency Medicine; PCP Internal Medicine; Visit Provider Emergency Medicine
DX: U07.1 COVID-19 (principal); R11.2 Nausea with vomiting, unspecified; R19.7 Diarrhea, unspecified; J45.909 Unspecified asthma, uncomplicated; F17.210 Nicotine dependence, cigarettes, uncomplicated; Z79.1 Long term (current) use of non-steroidal anti-inflammatories (NSAID); Z79.52 Long term (current) use of systemic steroids; Z79.899 Other long term (current) drug therapy
CPT/HCPCS: 36415; 71046; 80053; 81001; 83690; 85025; 87631; 93005; 94640; 96361; 96374; 99282; J7030; J2405